=== PATIENT | female | born 1965 | race Hispanic/Latino ===

== ENCOUNTER → 2019-03-09 | Outpatient (CLI) | payer OTHER ==
--- NOTE | 2019-03-09 12:35 | Diagnostic Imaging Report ---
Exam: Left heel 2 views History: Pain Comparison: None. Findings: No acute displaced fracture or dislocation. No osseous destructive lesions. Soft tissues unremarkable. Impression: No acute osseous abnormality. Signed by: Dr. Brandin Aadms M.D. on 03/09/2019 12:31 PM
== END ==
LOC: RAD 11:50
PROVIDERS: ATTEND Family Medicine
DX: M79.672 Pain in left foot (principal)

== ENCOUNTER → 2019-05-24 | Outpatient (CLI) | payer OTHER ==
--- NOTE | 2019-05-24 13:27 | Diagnostic Imaging Report ---
Thyroid ultrasound CPT code: 48970 History: Thyroid nodule, hyperthyroidism Comparison: None Findings: The thyroid echotexture is heterogeneous. Vascularity is normal. The right lobe measures 4.9 x 1.3 x 1.4 cm. The left lobe measures 4.7 x 1.1 x 1.4 cm. The isthmus measures 0.3 cm. Nodules (measurements are AP, transverse, craniocaudal): Right Lobe: There is a 1.5 x 0.9 x 1.2 cm mid pole complex hypoechoic solid nodule with echogenic components and increased internal vascularity, wider than tall, ill-defined margins and with internal calcifications. (TI-RADS 4) Left Lobe: Isoechoic 0.9 x 0.5 x 1.2 cm mid pole nodule which is wider than tall, has well-defined margins, and lacks internal vascularity or associated calcifications. (TI-RADS 3) Isthmus: No cystic mass or discrete solid nodule identified. Lymph Nodes: No cervical lymph nodes are identified. Parathyroids: Not visualized. IMPRESSION: 1.5 x 0.9 x 1.2 cm mid pole complex hypoechoic solid nodule with echogenic components and increased internal vascularity, wider than tall, ill-defined margins and with internal calcifications. (TI-RADS 4). Recommend thyroid FNA. Isoechoic 0.9 x 0.5 x 1.2 cm mid pole nodule which is wider than tall, has well-defined margins, and lacks internal vascularity or associated calcifications. (TI-RADS 3). No follow-up of this nodule is needed. ACR glossary of thyroid rads TI-RADS 1: No focal lesion. TI-RADS 2: Not suspicious. TI-RADS 3: Mildly suspicious (recommend FNA is greater than or equal to 2.5 cm; follow-up at 1, 3, and 5 years if greater than or equal to 1.5 cm) TI-RADS 4: Moderately Suspicious (recommend FNA is greater than or equal to 1.5 cm; follow-up at 1, 2, 3, and 5 years) TI-RADS 5: Highly suspicious (recommend FNA is greater than or equal to 10 mm) TI-RADS 6: Biopsy-proven malignancy Signed by: Katiuska Wagoner MD on 05/24/2019 1:24 PM
== END ==
LOC: US 10:33
PROVIDERS: ATTEND Family Medicine
DX: E04.2 Nontoxic multinodular goiter (principal); E05.90 Thyrotoxicosis, unspecified without thyrotoxic crisis or storm
CPT/HCPCS: 76536

== ENCOUNTER → 2019-06-08 | Outpatient (CLI) | payer OTHER ==
[~2019-06-08] MED LIST: LIDOCAINE HCL 1% LOCAL INJ 20 ML VIAL ONE
--- NOTE | 2019-06-08 12:19 | Diagnostic Imaging Report ---
Ultrasound guided thyroid FNA. History: Suspicious right thyroid nodule. Comparison: Thyroid ultrasound 05/24/2019 EBL: <1 cc. Specimen: 4 Thyroid FNA samples given to pathology. Discussion: Transverse and longitudinal images of the thyroid were obtained demonstrating a 1.4 cm heterogeneous hypoechoic nodule in the lower pole of the right thyroid lobe containing calcifications. After informed consent was obtained, the patient's neck was prepped and draped in a sterile fashion. The skin was anesthetized with 1% lidocaine without epinephrine. Using ultrasound guidance, the right thyroid nodule was aspirated using 25-gauge needles. Samples were given to pathology for adequacy determination. The patient tolerated procedure well without evidence of immediate complication. IMPRESSION: Successful ultrasound guided thyroid fine needle aspiration. Signed by: Zion Quinn on 06/08/2019 12:16 PM
== END ==
LOC: US 08:29
PROVIDERS: ATTEND Family Medicine
DX: E04.2 Nontoxic multinodular goiter (principal)
CPT/HCPCS: 10005; 88112; J2001; 88172; 88173